=== PATIENT | female | born 1965 | race Caucasian/White ===

== ENCOUNTER 2019-02-20 20:47 | Emergency (ER) | payer OTHER ==
--- NOTE | 2019-02-20 21:57 | EDM.PDOC ---
ED HPI GENERAL MEDICAL PROBLEM - General Chief Complaint: Lower Extremity Injury/Pain Stated Complaint: LT FOOT INJURY Time Seen by Provider: 02/20/19 21:19 Source of Information: Reports: Patient, RN Notes Reviewed - History of Present Illness INITIAL COMMENTS - FREE TEXT/NARRATIVE: 53 yr old female injured her L ankle and foot a short time ago. She states her foot got caught somehow walking "at gymnastics", foot and ankle twisted with pain L lateral foot and ankle with wt bearing. No other area of pain or injury. Left Foot Pain Score (Numeric/FACES): 6 - Related Data Allergies Allergy/AdvReac Type Severity Reaction Status Date / Time No Known Allergies Allergy Verified 02/20/19 21:07 Home Meds: Home Meds Levothyroxine [Levothroid] 137 mcg PO ACBREAKFAST 02/20/19 [History] Thyroid Armor 1 tab PO DAILY 02/20/19 [History] Past Medical History Cardiovascular History: Reports: Other (See Below) COOK MESS History: Reports: - Past Surgical History HEENT Surgical History: Reports: LASIK Cardiovascular Surgical History: Reports: Other (See Below) Other Cardiovascular Surgeries/Procedures: ASD, had surgery GI Surgical History: Reports: Appendectomy, Cholecystectomy Female Surgical History: Reports: Hysterectomy Other Female Surgeries/Procedures: partial Social & Family History - Tobacco Use Smoking Status *Q: Never Smoker - Caffeine Use Caffeine Use: Reports: None Review of Systems - Review of Systems Review Of Systems: See Below Constitutional: Reports: No Symptoms Respiratory: Reports: No Symptoms Musculoskeletal: Reports: Foot Pain, Joint Pain Skin: Reports: No Symptoms Neurological: Reports: Difficulty Walking. Denies: Numbness, Tingling, Weakness ED EXAM, GENERAL - Physical Exam Exam: See Below General Appearance: Alert, No Apparent Distress Head: Atraumatic Neck: Supple Respiratory/Chest: No Respiratory Distress Extremities: Other (there is tenderness and localized mild swelling dorsal and lateral L mid foot, foot otherwise nontender, mild tenderness inferior to l anterior ankle, ankle otherwise nontender). No: Leg Pain Neurological: Alert, No Motor/Sensory Deficits Course - Vital Signs Last Recorded V/S: Last Vital Signs Temp 98.3 F 02/20/19 21:04 Pulse 72 02/20/19 21:04 Resp 18 02/20/19 21:04 BP 193/102 H 02/20/19 21:04 Pulse Ox 94 L 02/20/19 21:04 - Orders/Labs/Meds Orders: Active Orders 24 hr Category Date Time Status Ankle Min 3V Lt [CR] Stat Exams 02/20/19 21:24 Taken Foot Comp Min 3V Lt [CR] Stat Exams 02/20/19 21:24 Taken Durable Medical Equipment for Discharge [DME for Oth 02/20/19 22:36 Ordered Discharge] [COMM] Stat - Re-Assessments/Exams Free Text/Narrative Re-Assessment/Exam: 02/20/19 22:38 X rays of foot and ankle do not show obvious fx and not where she is swollen and tender, I do see what looks like a possible hairline fx but likely just overlying shadow base of 3rd metatarsal. She is nontender and not swollen over that area of her foot. she does have significant pain with wt bearing. Her foot and ankle is stable so will treat with jose wrap and crutches. Discharge instr. as documented. Departure - Departure Time of Disposition: 22:18 Disposition: Home, Self-Care 01 Condition: Fair Clinical Impression: Left ankle sprain, Sprain of left foot - Discharge Information Instructions: Ankle Sprain, [id number] Referrals: PCP,Not In Area [Primary Care Provider] - Forms: ED Department Discharge Additional Instructions: Jose wrap, crutches, ice packs and elevation, no weight bearing until pain resolving. I have asked, left a note for the day provider tomorrow to call you with results. If you do not hear results tomorrow call ED anytime after 7 PM tomorrow evening and ask for Dr Julian. Follow up with your medical provider back home as needed. - My Orders Last 24 Hours: My Active Orders 02/20/19 21:24 Ankle Min 3V Lt [CR] Stat Foot Comp Min 3V Lt [CR] Stat 02/20/19 22:36 Durable Medical Equipment for Discharge [DME for Discharge] [COMM] Stat - Assessment/Plan Last 24 Hours: My Active Orders 02/20/19 21:24 Ankle Min 3V Lt [CR] Stat Foot Comp Min 3V Lt [CR] Stat 02/20/19 22:36 Durable Medical Equipment for Discharge [DME for Discharge] [COMM] Stat
--- NOTE | 2019-02-21 08:57 | CR ---
Left ankle: Four views of the left ankle were obtained. Comparison: No previous ankle study. Ankle mortise is symmetric. No fracture, dislocation or other bony abnormality is seen. Soft tissue swelling is noted. Small dystrophic calcification noted within the anterior lower carter which is felt to be incidental. Impression: 1. No acute bony abnormality is identified on left ankle exam. 2. Soft tissue swelling. Diagnostic code #1 This report was dictated in [place] Standard Time
--- NOTE | 2019-02-21 08:57 | CR ---
Left foot: Four views of the left foot were obtained. Comparison: No prior foot exam. Joint spaces are preserved. No fracture, dislocation or other bony abnormality is identified. Impression: 1. Nothing acute is appreciated on left foot exam. Diagnostic code #1 This report was dictated in [place] Standard Time
== END 2019-02-20 22:44 | disposition home or self-care (01) ==
LOC: JD.ED 20:47
DX: S93.402A Sprain of unspecified ligament of left ankle, initial encounter (principal); S93.602A Unspecified sprain of left foot, initial encounter; X50.1XXA Overexertion from prolonged static or awkward postures, initial encounter; Y93.01 Activity, walking, marching and hiking; Y92.39 Other specified sports and athletic area as the place of occurrence of the external cause
CPT/HCPCS: 73610-26-LT; 73610-LT; 73630-26-LT; 73630-LT; 99282; 99283-25